=== PATIENT | female | born 1980 | race Caucasian/White ===

== ENCOUNTER 2021-07-24 22:17 | Emergency (ER) | payer OTHER, SELFPAY ==
--- NOTE | 2021-07-24 | ECG_ITS ---
Test Reason : dizziness Blood Pressure : / mmHG Vent. Rate : 093 BPM Atrial Rate : 093 BPM P-R Int : 130 ms QRS Dur : 114 ms QT Int : 396 ms P-R-T Axes : 066 -10 -28 degrees QTc Int : 492 ms Normal sinus rhythm Moderate voltage criteria for LVH, may be normal variant ( R in aVL , [place] product ) Nonspecific ST and T wave abnormality Abnormal ECG When compared with ECG of 09-AUG-2019 10:00, No significant change was found Referred By: Generic ED Physician Electronically Signed By:ERNESTINE WYNN
--- NOTE | ~2021-07-24 | CT_ITS ---
EXAMINATION: CT HEAD WITHOUT CONTRAST CT CERVICAL SPINE WITHOUT CONTRAST CLINICAL INFORMATION: Fall COMPARISON: None. TECHNIQUE: Multidetector CT imaging of the head and cervical spine was performed without the use of intravenous contrast. Multiplanar reformats are reviewed. This CT examination was performed using dose optimization techniques as appropriate, variously including the following: *Automated exposure control *Adjustment of mA and/or kV according to patient size (this includes techniques or standardized protocols for targeted exams where dose is matched to indication/reason for exam; i.e. extremities or head) *Use of iterative reconstruction technique DLP: 1663 mGy-cm. FINDINGS: There is no evidence of acute intracranial hemorrhage or territorial infarction. No abnormal mass effect or midline shift is seen. Joyce to white matter differentiation is well preserved. No extra-axial fluid collections are identified. The ventricles are normal in size. There is no abnormal attenuation within the brain parenchyma. The osseous structures and soft tissues are normal. The mastoid air cells and visualized portions of the paranasal sinuses are well-aerated. Atlantooccipital alignment is maintained. The vertebral bodies and posterior elements align normally. No acute fracture or subluxation. Vertebral body heights are maintained. Endplate osteophytes present from C3-T1. The paraspinal soft tissues are unremarkable. The imaged lung apices are clear CT/CT head/brain wo con IMPRESSION: No acute intracranial pathology. No cervical spine fracture or malalignment.
--- NOTE | ~2021-07-24 | CT_ITS ---
EXAMINATION: CT HEAD WITHOUT CONTRAST CT CERVICAL SPINE WITHOUT CONTRAST CLINICAL INFORMATION: Fall COMPARISON: None. TECHNIQUE: Multidetector CT imaging of the head and cervical spine was performed without the use of intravenous contrast. Multiplanar reformats are reviewed. This CT examination was performed using dose optimization techniques as appropriate, variously including the following: *Automated exposure control *Adjustment of mA and/or kV according to patient size (this includes techniques or standardized protocols for targeted exams where dose is matched to indication/reason for exam; i.e. extremities or head) *Use of iterative reconstruction technique DLP: 1663 mGy-cm. FINDINGS: There is no evidence of acute intracranial hemorrhage or territorial infarction. No abnormal mass effect or midline shift is seen. Joyce to white matter differentiation is well preserved. No extra-axial fluid collections are identified. The ventricles are normal in size. There is no abnormal attenuation within the brain parenchyma. The osseous structures and soft tissues are normal. The mastoid air cells and visualized portions of the paranasal sinuses are well-aerated. Atlantooccipital alignment is maintained. The vertebral bodies and posterior elements align normally. No acute fracture or subluxation. Vertebral body heights are maintained. Endplate osteophytes present from C3-T1. The paraspinal soft tissues are unremarkable. The imaged lung apices are clear CT/CT cervical spine wo con IMPRESSION: No acute intracranial pathology. No cervical spine fracture or malalignment.
[2021-07-24 22:21] VITALS: PULSE 95; RESP 16; TEMP 36.9; O2SAT 98; BMI 53.2
[2021-07-24 22:51] LABS: MANUAL DIFF FLAG NO
[2021-07-24 22:57] LABS: Basophils Absolute Auto 0.1 X10*3/uL (0.0-0.2); Basophils Percent Auto 0.7 % (0-2); Eosinophils Absolute Auto 0.3 X10*3/uL (0.0-0.4); Eosinophils Percent Auto 2.6 % (0-4); Hematocrit 39.7 % (37.0-47.0); Hemoglobin 13.3 g/dl (12.0-16.0); Imm Gran Abs Auto 0.06 X10*3/uL (0.00-0.03); Imm Gran Pct Auto 0.6 % (0.0-0.4); Lymphocytes Absolute Auto 3.3 X10*3/uL (1.2-4.9); Lymphocytes Percent Auto 32.4 % (20-40); Mean Corpuscular HGB Conc 33.5 g/dl (31.0-35.0); Mean Corpuscular Hemoglobin 28.4 pg (27.0-33.0); Mean Corpuscular Volume 84.8 fL (80.0-98.0); Mean Platelet Volume 10.7 fL (9.4-12.3); Monocytes Absolute Auto 0.6 X10*3/uL (0.1-1.2); Neutrophils Absolute Auto 5.8 x10*3/uL (2.0-8.3); Neutrophils Percent Auto 57.7 % (45-73); Platelet Count 297 X10*3/uL (160-400); Red Blood Count 4.68 X10*6/uL (4.20-5.50); Red Cell Distribution Width 12.9 % (11.0-16.0); White Blood Count 10.1 X10*3/uL (4.8-10.8)
[2021-07-24 23:11] LABS: Alanine Aminotransferase 19 U/L (0-31); Albumin Level 4.6 g/dL (3.5-5.0); Alkaline Phosphatase 53 U/L (39-117); Anion Gap 15 (12-20); Aspartate Amino Transferase 23 U/L (5-31); Bilirubin Total 0.6 mg/dL (0.0-1.0); Blood Urea Nitrogen 13 mg/dL (9-16); Calcium 10.1 mg/dL (8.4-10.2); Carbon Dioxide 22 mmol/L (22-29); Chloride 105 mmol/L (96-108); Estimated Glomerular Filt Rate > 60; Glucose Random 107 mg/dL (60-115); Potassium 4.4 mmol/L (3.3-5.1); Sodium 138 mmol/L (135-145)
[2021-07-24 23:13] LABS: Troponin-I High Sensitivity < 3.5 ng/L (<3.5-17.0)
[2021-07-24 23:19] VITALS: BP 162/98; PULSE 88; RESP 16; TEMP 37; O2SAT 97
[2021-07-24 23:36] LABS: HCG Quantitative < 2 mIU/mL
--- NOTE | 2021-07-24 23:52 | ED.GENADULT ---
HPI - General Adult General Chief complaint: Fall Stated complaint: Head Inj Time Seen by Provider: 07/24/21 22:29 Source: patient Mode of arrival: ambulatory Limitations: no limitations History of Present Illness HPI narrative: 40 yold female with pmh of vertigo, HTN, fibromyaglia, PCOS presents to the ED for headache after losing her balance ( dizziness/sensation of room spinning) and falling and hitting her head. Patient states pmh of vertigo causing her to fall and hit her head many times before in the past.. Patient states she lost balance. patient denies having any chest pain, shortness of breath, fever, chills, slurred speech, paralysis of extremities, weakness, headache, loss of visions, or abdominal pain before falling. Patient denies loss of consciousess or syncope. Patient denies any recent long travel, recent surgery, recent trauma, control use, pleurisy, or history or PE/DVT. Related Data Previous Rx's Medication Instructions Recorded meclizine 25 mg tablet 25 mg PO TID 7 Days #21 tab 07/25/21 Allergies Allergy/AdvReac Type Severity Reaction Status Date / Time moxifloxacin [Avelox] Allergy Unknown Verified 12/10/12 00:00 No Known Allergies Allergy Unverified 11/04/19 17:57 seasonal Allergy Unknown Uncoded 12/10/12 00:00 Review of Systems Review of Systems: fall Yes all other systems are reviewed and are negative [facility] Social History Social History Advance Directives: No Physical Exam ED Vital Signs: Vital Signs - 24 hr 07/24/21 22:21 07/24/21 23:19 07/25/21 00:00 Temperature 98.4 F 98.6 F 98.2 F Pulse Rate 95 88 75 Respiratory Rate 16 16 15 Blood Pressure 162/98 H 155/100 H Pulse Oximetry 98 97 97 07/25/21 02:19 07/25/21 02:20 Temperature Pulse Rate 76 107 H Respiratory Rate Blood Pressure 132/87 129/65 Pulse Oximetry BMI result Body Mass Index 53.2 Const General: cooperative, healthy appearing, comfortable, no acute distress, well developed, alert and awake Orientation/consciousness: oriented to time and patient oriented x3 HENMT Head: Yes normal to inspection, Yes No palpable skull fracture present, Yes normocephalic, Yes atraumatic and No abrasion Head images: 1. tenderness on palpation. negative for crepitus, ecchymosis, deformities Eyes General: appearance normal, both eyes and all related structures Neck Neck: Yes normal visual inspection, Yes full ROM, Yes no lymphadenopathy, Yes no meningeal signs, Yes trachea midline, Yes supple, No anterior neck swelling and No tender Chest Chest palpation & inspection: normal inspection of the chest and normal palpation of entire chest wall Resp Effort & Inspection: normal respiratory effort and able to speak in complete sentences Auscultation: clear to auscultation bilaterally Cardio Jugular venous distension: no JVD Heart sounds: S1 normal heart sound present and S2 normal heart sound present GI Inspection: Yes normal to inspection and No abdominal wall ecchymosis Palpation (GI): Soft to palpation, not firm, nontender, no guarding and not rigid General: No CVA tenderness and Yes no CVA tenderness Back/Spine/Pelvis Back: no CVA tenderness, No CVA tenderness and No back tenderness Skin General skin exam: no rashes or lesions noted and elasticity normal Neuro General: oriented to time, patient oriented x3, gait normal, no meningeal signs and CN's II-XI intact bilaterally Cranial nerves: Yes CN's II-XII intact bilaterally Extrem General: Yes normal to inspection and Yes full ROM Psych Appearance: grossly normal, well kempt and not disheveled Course Course Course Narrative: labs, EKG, head CT, and tylenol ordered Reevaluation(s) Reevaluation #1: EKG negative stemi. First troponin negative. Head CT and Cervical Spine is negative. Patient has normal gait. no neuro deficit. Time: 01:40 Medical Decision Making [facility] Narrative Medical decision making narrative: Head injury, Dizziness, Vertigo Lab Data Result diagrams: 07/24/21 22:46 07/24/21 22:46 Labs: Lab Results 07/24/21 07/24/21 07/24/21 Range/Units 22:46 22:46 22:46 WBC 10.1 (4.8-10.8) X10*3/uL RBC 4.68 (4.20-5.50) X10*6/uL Hgb 13.3 (12.0-16.0) g/dl Hct 39.7 (37.0-47.0) % MCV 84.8 (80.0-98.0) fL MCH 28.4 (27.0-33.0) pg MCHC 33.5 (31.0-35.0) g/dl RDW 12.9 (11.0-16.0) % Plt Count 297 (160-400) X10*3/uL MPV 10.7 (9.4-12.3) fL Immature Gran % (Auto) 0.6 H (0.0-0.4) % Neut % (Auto) 57.7 (45-73) % Lymph % (Auto) 32.4 (20-40) % [place] % (Auto) 6.0 (2-11) % Eos % (Auto) 2.6 (0-4) % Baso % (Auto) 0.7 (0-2) % Lymph # (Auto) 3.3 (1.2-4.9) X10*3/uL Oxford # (Auto) 0.6 (0.1-1.2) X10*3/uL Eos # (Auto) 0.3 (0.0-0.4) X10*3/uL Baso # (Auto) 0.1 (0.0-0.2) X10*3/uL Abs Immat Gran (auto) 0.06 H (0.00-0.03) X10*3/uL Absolute Neuts (auto) 5.8 (2.0-8.3) x10*3/uL Absolute Nucleated RBC 0.000 (0.0-0.012) X10*3/uL Nucleated RBC % (auto) 0.0 (0.0-0.2) /100WBC Sodium 138 (135-145) mmol/L Potassium 4.4 (3.3-5.1) mmol/L Chloride 105 (96-108) mmol/L Carbon Dioxide 22 (22-29) mmol/L Anion Gap 15 (12-20) BUN 13 (9-16) mg/dL Creatinine 0.83 (0.5-1.4) mg/dL Estim Creat Clear Calc 133.0 Estimated GFR > 60 Random Glucose 107 (60-115) mg/dL Calcium 10.1 (8.4-10.2) mg/dL Magnesium 1.8 (1.6-2.6) mg/dL Total Bilirubin 0.6 (0.0-1.0) mg/dL AST 23 (5-31) U/L ALT 19 (0-31) U/L Alkaline Phosphatase 53 (39-117) U/L Troponin I High Sens < 3.5 (<3.5-17.0) ng/L Total Protein 8.0 (6.5-8.0) g/dL Albumin 4.6 (3.5-5.0) g/dL Beta HCG, Quant < 2 mIU/mL 07/25/21 Range/Units 01:40 WBC (4.8-10.8) X10*3/uL RBC (4.20-5.50) X10*6/uL Hgb (12.0-16.0) g/dl Hct (37.0-47.0) % MCV (80.0-98.0) fL MCH (27.0-33.0) pg MCHC (31.0-35.0) g/dl RDW (11.0-16.0) % Plt Count (160-400) X10*3/uL MPV (9.4-12.3) fL Immature Gran % (Auto) (0.0-0.4) % Neut % (Auto) (45-73) % Lymph % (Auto) (20-40) % Oxford % (Auto) (2-11) % Eos % (Auto) (0-4) % Baso % (Auto) (0-2) % Lymph # (Auto) (1.2-4.9) X10*3/uL Oxford # (Auto) (0.1-1.2) X10*3/uL Eos # (Auto) (0.0-0.4) X10*3/uL Baso # (Auto) (0.0-0.2) X10*3/uL Abs Immat Gran (auto) (0.00-0.03) X10*3/uL Absolute Neuts (auto) (2.0-8.3) x10*3/uL Absolute Nucleated RBC (0.0-0.012) X10*3/uL Nucleated RBC % (auto) (0.0-0.2) /100WBC Sodium (135-145) mmol/L Potassium (3.3-5.1) mmol/L Chloride (96-108) mmol/L Carbon Dioxide (22-29) mmol/L Anion Gap (12-20) BUN (9-16) mg/dL Creatinine (0.5-1.4) mg/dL Estim Creat Clear Calc Estimated GFR Random Glucose (60-115) mg/dL Calcium (8.4-10.2) mg/dL Magnesium (1.6-2.6) mg/dL Total Bilirubin (0.0-1.0) mg/dL AST (5-31) U/L ALT (0-31) U/L Alkaline Phosphatase (39-117) U/L Troponin I High Sens 3.7 (<3.5-17.0) ng/L Total Protein (6.5-8.0) g/dL Albumin (3.5-5.0) g/dL Beta HCG, Quant mIU/mL ECG Data Interpretation: NOrmal Sinus rhygth, Vent rate 93, AZ interval 130, QRS 114, and QTC is 492 Discharge Plan Discharge Clinical Impression: Dizziness, Head injury, Vertigo Patient Disposition: Home, Self-Care Instructions: Vertigo (DC), Head Injury (ED), Dizziness (ED) Additional Instructions: Please follow up with PCP. Return to the ED for slurred speech, chest pain, shortness of breath, nausea, vomitting, worsening headache, paralysis of extremities, loss of vision, lethargy, syncope, or any other concerning symptoms. Prescriptions: New meclizine 25 mg tablet 25 mg PO TID 7 Days Qty: 21 0RF Referrals: Marco Elam MD [Primary Care Provider] - (head injury. Dizziness. Vertigo) Print Language: Indonesian
[2021-07-25] VITALS: BP 155/100; PULSE 75; RESP 15; TEMP 36.8; O2SAT 97
--- NOTE | 2021-07-25 00:11 | PC.NURSE ---
Patient reports headache 6/10 at present-provider notified.
[2021-07-25] MEDS: Meclizine HCl 25 MG TABLET 50 MG PO (00:20)
[2021-07-25] MEDS: Acetaminophen 325 MG TABLET 650 MG PO (00:21)
[2021-07-25 02:09] LABS: Magnesium 1.8 mg/dL (1.6-2.6)
[2021-07-25 02:16] LABS: Troponin-I High Sensitivity 3.7 ng/L (<3.5-17.0)
[2021-07-25 02:19] VITALS: BP 132/87; PULSE 76
[2021-07-25 02:20] VITALS: BP 129/65; BP 149/96; PULSE 107; PULSE 76
== END 2021-07-25 02:42 | disposition home or self-care (01) ==
PROVIDERS: Physician Assistant; Emergency Provider Internal Medicine; PCP Internal Medicine
DX: R42 Dizziness and giddiness (principal); S09.90XA Unspecified injury of head, initial encounter; W17.89XA Other fall from one level to another, initial encounter; Z91.81 History of falling; Y93.9 Activity, unspecified; Y92.019 Unspecified place in single-family (private) house as the place of occurrence of the external cause; Y99.9 Unspecified external cause status
CPT/HCPCS: 36415; 70450; 72125; 80053; 83735; 84484; 84702; 85025; 93005; 99284

== ENCOUNTER 2021-10-14 15:16 | Emergency (ER) | payer OTHER, SELFPAY ==
--- NOTE | ~2021-10-14 | XR_ITS ---
EXAMINATION: XR ELBOW, RIGHT CLINICAL INFORMATION: Pain COMPARISON: None TECHNIQUE: AP, lateral, and oblique views of the right elbow. FINDINGS: The bones and soft tissues are normal. No fracture or joint effusion. Alignment is anatomic. Joint spaces are maintained. XR/XR elbow RT min 3V IMPRESSION: No osseous changes to explain patient's pain symptoms.
--- NOTE | ~2021-10-14 | XR_ITS ---
EXAMINATION: XR TIBIA AND FIBULA, LEFT CLINICAL INFORMATION: Pain fall COMPARISON: None TECHNIQUE: AP and lateral views of the left tibia and fibula were obtained. FINDINGS: The bones and soft tissues are normal. No fracture. No osseous lesions. XR/XR tibia fibula LT 2V IMPRESSION: No fracture.
--- NOTE | ~2021-10-14 | XR_ITS ---
EXAMINATION: XR FOOT, LEFT CLINICAL INFORMATION: Pain COMPARISON: None TECHNIQUE: AP, lateral, and oblique views of the left foot. FINDINGS: The bones and soft tissues are normal. No fracture. Alignment is anatomic. Joint spaces are maintained. There are small calcaneal spurs. No significant osseous changes to suggest gouty arthritis. First metatarsophalangeal joints is intact. Loss of midfoot arch suggesting pes planus. XR/XR foot LT min 3V IMPRESSION: No significant osseous changes to explain patient's pain symptoms. Small inferior and posterior calcaneal spurs. No bone erosions. Loss of midfoot arch suggesting pes planus.
[2021-10-14 15:25] VITALS: BP 157/97; PULSE 90; RESP 18; TEMP 36.8; O2SAT 97; BMI 55.7
--- NOTE | 2021-10-14 16:25 | ED.FALL ---
HPI - Fall General Chief Complaint: Fall Stated Complaint: Fall 10/13 Time Seen by Provider: 10/14/21 15:54 Source: patient Mode of arrival: ambulatory Limitations: no limitations History of Present Illness HPI Narrative: 40-year-old female presenting to the ED with complaints of a gout flare up to her left great toe that started over the past few days. Reports that she usually takes indomethacin. Reports that the pain has gotten so bad that yesterday she fell on her bilateral hand/right elbow and bilateral legs injuring her left lower extremity. She denies head injury loss of consciousness or prolonged down time. She denies any symptoms prior to the fall only her gout flare pain. She denies being on any blood thinners. She denies any obvious deformities, paresthesias, neck pain/stiffness, back pain/injury, chest injury, abdominal injury, paresthesias, any other symptoms complaints or concerns or injuries at this time. complaint: fall Onset (ago): day(s) (Fell yesterday although she has been having her gout flare up for the past few days worse today) Fall from: standing Fall witnessed: no Place fall occurred: home Loss of consciousness: none Prolonged down time: no Symptoms prior to fall: none Context: tripped/slipped Location of injury - extremities: left: lower leg and right: elbow and hand Severity: mild Quality: burning and aching Associated symptoms (after fall): denies Related Data Previous Rx's Medication Instructions Recorded meclizine 25 mg tablet 25 mg PO TID 7 days #21 tabs 07/25/21 indomethacin 50 mg capsule 50 mg PO TID Gout flare #30 caps 10/14/21 oxycodone 5 mg tablet 5 mg PO Q6H PRN pain #14 tabs 10/14/21 prednisone 20 mg tablet 40 mg PO DAILY Inflammation 5 days 10/14/21 #10 tabs Allergies Allergy/AdvReac Type Severity Reaction Status Date / Time moxifloxacin [Avelox] Allergy Unknown Unknown Verified 10/14/21 15:25 No Known Allergies Allergy Unverified 11/04/19 17:57 seasonal Allergy Unknown Dry Eye Uncoded 10/14/21 15:25 Review of Systems Review of Systems: Constitutional : No Weight loss, No Fever, No Chills, No Night Sweats, No Fatigue, No Malaise ENT/Mouth : No Hearing loss, No Ear Pain, No Nasal Congestion, No Sinus Pain, No Hoarseness, No sore throat, No Rhinorrhea, No Swallowing Difficulty Eyes: No Eye Pain, No Swelling, No Redness, No Foreign Body, No Discharge, No Vision Changes Cardiovascular : No Chest Pain, No SOB, No Dyspnea on Exertion, No Orthopnea, No Edema, No Palpitations Respiratory : No Cough, No Sputum, No Wheezing, No Smoke Exposure, No Dyspnea Gastrointestinal : No Nausea, No Vomiting, No Diarrhea, No Constipation, No abdominal Pain, No Hematochezia, No Melena Genitourinary : no irregular bleeding, No Dysuria, No Urinary Frequency, No Hematuria, No Urinary Incontinence, No Urgency, No Flank Pain, No Urinary Flow Changes, No Hesitancy Musculoskeletal : + right elbow/hand/wrist p[ain, + left lower extremity pain, +left great toe pain, No Myalgias, No Joint Swelling Skin : No Skin Lesions, No rash Neuro : No Weakness, No Numbness, No Paresthesias, No Loss of Consciousness, No Dizziness, No Headache Psych : No Anxiety/Panic, No Depression, No SI/HI/AH/VH, No Social Issues, Heme/Lymph: No Bruising, No Bleeding,No Lymphadenopathy Endocrine : No Polyuria, No Polydipsia, No Temperature Intolerance Yes all other systems are reviewed and are negative [facility] Past Medical History Attestation statement: The following information was validated with the patient. Source: old records reviewed and nursing notes reviewed Social History Social History Advance Directives: No Advance Directives Information Provided: No Physical Exam Vital Signs: Vital Signs: Last Vital Signs Temp 98.3 F 10/14/21 15:25 Pulse 90 10/14/21 15:25 Resp 18 10/14/21 15:25 BP 157/97 H 10/14/21 15:25 Pulse Ox 97 10/14/21 15:25 O2 Del Method 10/14/21 15:25 BMI result Body Mass Index 55.7 vital signs have been reviewed as normal and appeared to be correct. Blood pressure 157/97 Heart rate normal. Respiration rate normal. Temperature normal. Oxygen saturation normal. Appearance: Alert. Oriented X3. No acute distress. Head: Normal external exam. Normocephalic. Atraumatic. No Aceves signs noted. No raccoon eyes noted Eyes: PERRLA. EOMI. Conjunctiva and sclera normal. Eyelids normal. ENT: EAC normal. TM's Normal. No septal hematoma noted. No hemotympanum noted. Pharynx normal. Uvula midline. Moist mucous membranes. No lesions/ulcerations or masses noted on the tongue. Normal voice. No trismus noted. No drooling noted. No muffled voice noted. Neck: Normal inspection. Neck supple. FROM. No adenopathy. Thyroid Normal. No tracheal deviation noted. No crepitus is noted. No meningeal signs. No neck mass noted. No signs of trauma noted. CVS: Normal heart rate and rhythm. Heart sound normal. Pulses normal throughout. No murmurs/rales/gallops. Respiratory: No respiratory distress. Painless inspiration. Breath sounds normal. No wheezes/rales/rhonchi noted. Chest nontender. No crepitus is noted. No accessory muscle usage noted or decreased air movement noted. No signs of trauma. Abdomen: Soft and nontender. Nondistended. No guarding. No rigidity. Bowel sounds normal in all 4 quadrants. No distention noted. No organomegaly noted. No visible injury noted. No rebound tenderness. Negative Rovsing sign. Negative obturator's sign. Negative psoas sign. Negative Matos sign. Back: No CVA tenderness. Full range of motion noted. Nontender. No signs of trauma. Patient neuro intact bilaterally and distally on all 4 extremities. Patient's reflexes intact bilaterally and distally on all 4 extremities. No rashes/lesion/induration/fluctuance or signs of infection noted. Skin: Skin warm and dry. Normal skin color. Normal skin turgor. No rashes/lesions/lacerations noted. Extremities: Patient with mild soft tissue swelling to right elbow no obvious deformities and patient has full range of motion no obvious ligamentous or tendon injury noted. Patient with tenderness palpation to the right hand and wrist no point tenderness and she has full range of motion of the right hand/wrist no obvious ligamentous or tendon injury noted. Patient has full range normal bilateral knees no signs of trauma. To the mid tibia/fibula aspect anterior patient has soft tissue swelling with ecchymosis noted. To the left great toe patient has erythema and mild tenderness palpation consistent with possible gout flare-up. Otherwise no lower extremity edema or calf tenderness and patient has full range of motion of all other extremities and nontender. Neuro: Oriented X 3. No motor deficit. No sensory deficit. Reflexes normal. Normal steady gait. No focal neuro deficits noted. CN's II-XII intact bilaterally? Vascular: + radial pulses/+ 2 distal pedal pulses/+2 dorsalis pedis b/l. Normal cap refill. No cyanosis noted to upper extremity nails and lower extremity toes nails. Course Course Course Narrative: X-rays negative for any acute processes. Will DC home with symptomatic treatment for gout flare-up and instructions return if any new or worsening symptoms follow up with primary care provider. Patient understands agrees with this plan. MDM - Fall Medical Records Attestation: I reviewed the patient's medical records. Imaging Data Left tibia/fibular x-ray elbow x-ray: Attestation: I personally reviewed and interpreted this imaging study as follows: Radiologist's impression: FINDINGS: The bones and soft tissues are normal. No fracture or joint effusion. Alignment is anatomic. Joint spaces are maintained.? XR/XR elbow RT min 3V IMPRESSION: No osseous changes to explain patient's pain symptoms. FINDINGS: The bones and soft tissues are normal. No fracture. Alignment is anatomic. Joint spaces are maintained.? There are small calcaneal spurs. No significant osseous changes to suggest gouty arthritis. First metatarsophalangeal joints is intact. Loss of midfoot arch suggesting pes planus. XR/XR foot LT min 3V IMPRESSION: No significant osseous changes to explain patient's pain symptoms. ? Small inferior and posterior calcaneal spurs. ? No bone erosions. ? Loss of midfoot arch suggesting pes planus. FINDINGS: The bones and soft tissues are normal. No fracture. No osseous lesions. ? XR/XR tibia fibula LT 2V IMPRESSION: No fracture. Discharge Plan Discharge Clinical Impression: Fall, Sprain of right elbow, Gout flare, Muscle strain of left lower extremity Patient Disposition: Home, Self-Care Instructions: Low Purine Diet (ED), Gout (ED), Elbow Sprain (ED) Prescriptions: New indomethacin 50 mg capsule 50 mg PO TID Qty: 30 0RF Rx Instructions: administer with food or milk prednisone 20 mg tablet 40 mg PO DAILY 5 Days Qty: 10 0RF oxycodone 5 mg tablet 5 mg PO Q6H PRN (Reason: pain) Qty: 14 0RF Rx Instructions: Partial Fill upon patient request. No Action meclizine 25 mg tablet 25 mg PO TID 7 Days Qty: 21 0RF Referrals: Bhavin Babb MD [Primary Care Provider] - 2 days Print Language: Georgian
[2021-10-14] MEDS: oxyCODONE HCl Immed Release 5 MG TABLET PO (17:39)
[2021-10-14] MEDS: Indomethacin 25 MG CAPSULE 50 MG PO (17:40)
[2021-10-14] MEDS: predniSONE 20 MG TABLET 60 MG PO (17:40)
== END 2021-10-14 18:01 | disposition home or self-care (01) ==
PROVIDERS: Emergency Provider Emergency Medicine; PCP Internal Medicine
DX: S53.401A Unspecified sprain of right elbow, initial encounter (principal); S83.92XA Sprain of unspecified site of left knee, initial encounter; M10.9 Gout, unspecified; M25.521 Pain in right elbow; M79.605 Pain in left leg; W01.0XXA Fall on same level from slipping, tripping and stumbling without subsequent striking against object, initial encounter; Y93.9 Activity, unspecified; Y92.9 Unspecified place or not applicable; Y99.9 Unspecified external cause status; Z79.899 Other long term (current) drug therapy
CPT/HCPCS: 73080; 73590; 73630; 99283

== ENCOUNTER 2022-01-01 18:57 | Emergency (ER) | payer OTHER, SELFPAY ==
[2022-01-01 19:57] VITALS: BP 156/104; PULSE 99; RESP 18; TEMP 36.7; BMI 54.9
[2022-01-01 23:20] VITALS: BP 152/80; PULSE 105; RESP 19; TEMP 37.2; O2SAT 99
--- NOTE | 2022-01-01 23:54 | ED.GENADULT ---
HPI - General Adult General Chief complaint: General Medical Stated complaint: abscess, gout Time Seen by Provider: 01/01/22 23:40 Source: patient Mode of arrival: ambulatory Limitations: no limitations History of Present Illness HPI narrative: Patient comes to the emergency room complaining of a gout attack in her left big toe which she has had before. Also, patient complaining of movement patient, all her teeth hurt , specifically in the maxillary side on the right. Patient denies fever chills. Patient states that she has had issues with her asthma in the last few days. At this time, patient has no shortness of breath. Related Data Previous Rx's Medication Instructions Recorded meclizine 25 mg tablet 25 mg PO TID 7 days #21 tabs 07/25/21 cyclobenzaprine 10 mg tablet 10 mg PO Q8H #14 tabs 10/14/21 indomethacin 50 mg capsule 50 mg PO TID Gout flare #30 caps 10/14/21 oxycodone 5 mg tablet 5 mg PO Q6H PRN pain #14 tabs 10/14/21 prednisone 20 mg tablet 40 mg PO DAILY Inflammation 5 days 10/14/21 #10 tabs penicillin V potassium 500 mg 500 mg PO TID 7 days #21 tabs 01/01/22 tablet indomethacin 50 mg capsule 50 mg PO BID PRN pain #20 caps 01/02/22 prednisone 50 mg tablet 50 mg PO DAILY #4 tabs 01/02/22 Allergies Allergy/AdvReac Type Severity Reaction Status Date / Time moxifloxacin [Avelox] Allergy Unknown Unknown Verified 01/01/22 20:01 No Known Allergies Allergy Unverified 11/04/19 17:57 seasonal Allergy Unknown Dry Eye Uncoded 10/14/21 15:25 Review of Systems Review of Systems: Constitutional : No Weight loss, No Fever, No Chills, No Night Sweats, No Fatigue, No Malaise ENT/Mouth : No Hearing loss, No Ear Pain, No Nasal Congestion, No Sinus Pain, No Hoarseness, No sore throat, No Rhinorrhea, No Swallowing Difficulty, complaining of poor dentition and pain in the gums on the upper side on the right Eyes: No Eye Pain, No Swelling, No Redness, No Foreign Body, No Discharge, No Vision Changes Cardiovascular : No Chest Pain, No SOB, No Dyspnea on Exertion, No Orthopnea, No Edema, No Palpitations Respiratory : No Cough, No Sputum, complaining of intermittent wheezing, asthma not well controlled. Gastrointestinal : No Nausea, No Vomiting, No Diarrhea, No Constipation, No abdominal Pain, No Hematochezia, No Melena Genitourinary : no irregular bleeding, No Dysuria, No Urinary Frequency, No Hematuria, No Urinary Incontinence, No Urgency, No Flank Pain, No Urinary Flow Changes, No Hesitancy Musculoskeletal : No joint pain, No Myalgias, No Joint Swelling Skin : Complaining of a gout attack on the left great toe Neuro : No Weakness, No Numbness, No Paresthesias, No Loss of Consciousness, No Dizziness, No Headache Psych : No Anxiety/Panic, No Depression, No SI/HI/AH/VH, No Social Issues, Heme/Lymph: No Bruising, No Bleeding,No Lymphadenopathy Endocrine : No Polyuria, No Polydipsia, No Temperature Intolerance [facility] Past Medical History Medical History (Updated 01/01/22 @ 23:59 by Andree Marie MD) Asthma exacerbation Gout Poor dentition Social History Social History Advance Directives: No Advance Directives Information Provided: Yes Physical Exam ED Vital Signs: Vital Signs - 24 hr 01/01/22 19:57 01/01/22 23:20 Temperature 98.1 F 98.9 F Pulse Rate 99 105 H Respiratory Rate 18 19 Blood Pressure 156/104 H 152/80 H Pulse Oximetry 99 Oxygen Delivery Method Room Air Room Air BMI result Body Mass Index 54.9 Const Other: Appearance: Alert. Oriented X3. No acute distress. Eyes: Pupils equal, round and reactive to light. ENT: Pharynx normal. Patient does have poor dentition. Decayed teeth throughout the mouth. There are no visible abscesses that could be drained. Neck: Normal inspection. Neck supple. No lymph nodes noted. No crepitus CVS: Normal heart rate and rhythm. Pulses normal. Normal S1 and S2 Respiratory: No respiratory distress. Breath sounds normal. No Wheezing. No rales Abdomen: Soft and nontender. No rigidity. No distention. Skin: Skin warm and dry. Normal skin color. Normal skin turgor. The great toe is erythematous and very tender to touch, consistent with gout Extremities: No lower extremity edema. No Lacerations. No Rash Neuro: Oriented X 3. No motor deficit. No sensory deficit. Moving all extremities. No slurred speech. CN 2 through 12 grossly intact Psych: calm, cooperative, normal affect Course Course Course Narrative: Patient will be started on antibiotics for dental pain. Patient instructed to follow up with the primary care physician. Patient given a dose of IM Toradol for both dental pain and gout. For the gout, patient was also given a dose of colchicine and prednisone. At this time, patient is not wheezing, however she will be given prednisone for both gout and asthma Discharge Plan Discharge Clinical Impression: Gout attack, Pain, dental, Asthma Patient Disposition: Home, Self-Care Instructions: Asthma (ED), Gout (ED), Toothache (ED) Additional Instructions: Please follow-up with your primary care physician and dentist tomorrow. If you have any worsening or new symptoms, please return to the emergency room or call 911 Prescriptions: New penicillin V potassium 500 mg tablet 500 mg PO TID 7 Days Qty: 21 0RF prednisone 50 mg tablet 50 mg PO DAILY Qty: 4 0RF indomethacin 50 mg capsule 50 mg PO BID PRN (Reason: pain) Qty: 20 0RF Rx Instructions: administer with food or milk No Action meclizine 25 mg tablet 25 mg PO TID 7 Days Qty: 21 0RF indomethacin 50 mg capsule 50 mg PO TID Qty: 30 0RF Rx Instructions: administer with food or milk prednisone 20 mg tablet 40 mg PO DAILY 5 Days Qty: 10 0RF oxycodone 5 mg tablet 5 mg PO Q6H PRN (Reason: pain) Qty: 14 0RF Rx Instructions: Partial Fill upon patient request. cyclobenzaprine 10 mg tablet 10 mg PO Q8H Qty: 14 0RF
[2022-01-02] MEDS: Penicillin V Potassium 250 MG TABLET 500 MG PO (00:25)
[2022-01-02] MEDS: Ketorolac Tromethamine 60 MG/2 ML VIAL IM (00:46)
[2022-01-02] MEDS: Colchicine 0.6 MG TABLET 1.2 MG PO (00:47)
[2022-01-02] MEDS: predniSONE 10 MG TABLET 50 MG PO (00:47)
--- NOTE | 2022-01-02 00:51 | PC.NURSE ---
order for colchicine 1.2mg contacted nursing transportation maintenance supervisor to obtain med as it was not available in emc and main ed causing delay in medication and discharge
--- NOTE | 2022-01-02 00:52 | PC.NURSE ---
pt medicated according to MAR
== END 2022-01-02 01:01 | disposition home or self-care (01) ==
PROVIDERS: Emergency Provider Emergency Medicine; PCP Internal Medicine
DX: M10.9 Gout, unspecified (principal); K08.89 Other specified disorders of teeth and supporting structures; J45.909 Unspecified asthma, uncomplicated; Z79.899 Other long term (current) drug therapy
CPT/HCPCS: 96372; 99283; 99284; J1885

== ENCOUNTER 2022-01-06 15:23 | Emergency (ER) | payer OTHER, SELFPAY ==
--- NOTE | 2022-01-06 15:27 | ED.DENTAL ---
HPI - Dental/Oral General Chief complaint: Dental/Oral Stated complaint: tooth abscess Time Seen by Provider: 01/06/22 15:27 Source: patient Mode of arrival: ambulatory Limitations: no limitations History of Present Illness HPI Narrative: 41 yo female with history of poor dentition presents to the ER for evaluation of tooth pain and concern of abscess. He states she was recently diagnosed with a dental abscess of 1 of her front teeth and was started on penicillin and pain control. She states she went to her dentist at the [facility] and they were told they could not drain it. She is due to get her teeth extracted next week. She is here with increased pain and swelling. She is worried there can not extract her teeth because of the pain and swelling. She also reports increased pain of her nose with blisters inside of her right nare. No fever or chills. She has a headache and facial pain from her swollen and infected tooth. MD Complaint: tooth pain Location: Tooth # (8) Onset (ago): day(s) Duration: constant Severity: severe Severity scale (1-10): 10 Relieving factors: nothing Exacerbating factors: chewing, cold, heat and drinking fluids Context: history of dental caries and poor dental care Associated symptoms: gum swelling Treatment prior to arrival: none Related Data Previous Rx's Medication Instructions Recorded meclizine 25 mg tablet 25 mg PO TID 7 days #21 tabs 07/25/21 cyclobenzaprine 10 mg tablet 10 mg PO Q8H #14 tabs 10/14/21 indomethacin 50 mg capsule 50 mg PO TID Gout flare #30 caps 10/14/21 oxycodone 5 mg tablet 5 mg PO Q6H PRN pain #14 tabs 10/14/21 prednisone 20 mg tablet 40 mg PO DAILY Inflammation 5 days 10/14/21 #10 tabs penicillin V potassium 500 mg 500 mg PO TID 7 days #21 tabs 01/01/22 tablet indomethacin 50 mg capsule 50 mg PO BID PRN pain #20 caps 01/02/22 prednisone 50 mg tablet 50 mg PO DAILY #4 tabs 01/02/22 chlorhexidine gluconate 0.12 % 15 ml buccal BID #118 mL 01/06/22 mouthwash (Peridex) clindamycin HCl 300 mg capsule 300 mg PO Q6H 7 days #28 caps 01/06/22 oxycodone 10 mg tablet 10 mg PO Q8H PRN severe pain 01/06/22 (scale score 7-10) #8 tabs valacyclovir 1 gram tablet 1,000 mg PO Q8H 7 days #21 tabs 01/06/22 Allergies Allergy/AdvReac Type Severity Reaction Status Date / Time moxifloxacin [Avelox] Allergy Unknown Unknown Verified 01/01/22 20:01 No Known Allergies Allergy Unverified 11/04/19 17:57 seasonal Allergy Unknown Dry Eye Uncoded 10/14/21 15:25 Review of Systems Review of Systems: Constitutional: No Fever, No Chills ENT/Mouth: No sore throat, +Rhinorrhea, No Swallowing Difficulty, +Dental pain Eyes: +Eye Pain, No Swelling, No Redness Cardiovascular: No Chest Pain, No SOB Respiratory: No Cough, No Sputum Gastrointestinal: No Nausea, No Vomiting, No Diarrhea, No abdominal Pain Musculoskeletal: No joint pain, No Myalgias Skin: No Skin Lesions, + rash Neuro: No Weakness, No Numbness, No Dizziness, + Headache Psych: + Anxiety/Panic, No Depression Heme/Lymph: No Bruising, No Lymphadenopathy PMFSH Past Medical History Medical History (Updated 01/06/22 @ 15:43 by NICK Jarvis) Asthma exacerbation Gout Poor dentition Social History Social History Advance Directives: No Advance Directives Information Provided: Yes Physical Exam Vital Signs: Vital Signs: Last Vital Signs Temp 98.7 F 01/06/22 15:29 Pulse 91 01/06/22 15:29 Resp 18 01/06/22 15:29 BP 178/112 H 01/06/22 15:29 Pulse Ox 97 01/06/22 15:29 O2 Del Method 01/06/22 15:29 BMI result Body Mass Index 61.3 Appearance: Alert. Oriented X3. No acute distress. HEENT: The right nare internally and externally has several sores in a cluster on an erythematous base, exquisitely tender. No lesions on the tip of the nose. Normal inspection of the bilateral eyes. Normal inspection of bilateral ears, TMs are clear bilaterally. Oral exam with poor dentition, black stubs for upper teeth. gingiva associated with tooth #8 with significant gingival swelling, tenderness and fluctuance with visible abscess. Uvula midline. No tonsillar swelling or exudate. CVS: Normal heart rate and rhythm. Pulses normal. Respiratory: No respiratory distress. Lungs are clear. Airway is patent. Skin: Skin warm and dry. Normal skin color. Normal skin turgor. No rashes. Extremities: Normal inspection, normal range of motion. Neuro: Oriented X 3. No motor deficit. No sensory deficit. Steady gait Course Course Course Narrative: 41-year-old female presents to the ER for evaluation of dental abscesses of tooth 8. Already on penicillin. Worsening symptoms on penicillin. Concern she needs drained today. She is agreeable. Will also plan to add additional antibiotic coverage with clindamycin. Pain medications have been controlled and topical lidocaine has been applied. Will plan to incise and drain the abscess today. Reevaluation(s) Reevaluation #1: Abscess was incised with an 11 blade with expression of green purulent discharge. Patient feeling some relief in the pressure and pain after drainage. Will add clindamycin to her previously prescribed pen V. The blisters and sores on her right nose and nostril are consistent with HSV infection. Will prescribe and treat with valacyclovir. No eye or ear involvement. Comfortable discharge home. She will follow-up with her dentist early this week. Medications Administered Discontinued Medications Generic Name Dose Route Start Last Admin Trade Name Wiliamq PRN Reason Stop Dose Admin Clindamycin HCl 300 mg 01/06/22 15:42 01/06/22 16:00 Clindamycin Hcl 300 Mg Capsule PO 01/06/22 15:43 300 mg ONCE ONE Administration Ketorolac Tromethamine 30 mg 01/06/22 15:36 01/06/22 16:00 Ketorolac Tromethamine 30 Mg/Ml Vial IM 01/06/22 15:37 30 mg ONCE ONE Administration Lidocaine HCl 15 ml 01/06/22 16:19 01/06/22 16:24 Lidocaine Hcl Viscous 2 % 15 Ml Solution MUCOUS MEM 01/06/22 16:20 15 ml ONCE ONE Administration Oxycodone HCl 10 mg 01/06/22 15:36 01/06/22 16:00 Oxycodone Hcl Immed Release 5 Mg Tablet PO 01/06/22 15:37 10 mg ONCE ONE Administration Procedures Abscess I/D Site: oral Side (if applicable): right Local Anesthetic: other anesthetic (Law lidocaine, topical lidocaine) Technique: incised with blade Sent for culture/gram staining?: No Irrigation: No Packing used?: none Complications: pain Discharge Plan Discharge Clinical Impression: Dental abscess Patient Disposition: Home, Self-Care Instructions: Dental Abscess (ED) Additional Instructions: Take the prescribed antibiotics in addition to your previously prescribed antibiotics. Complete the entire course. Use the antiseptic mouthwash 2 times a day as directed. Follow-up with your dentist tomorrow. Take the prescribed pain medication as needed for severe pain. Recommend around the clock anti-inflammatory medications like Aleve, Motrin or indomethacin as well. Follow-up with your dentist early this week. Take the prescribed antiviral medication for the sores in your nose. If you develop new or worsening symptoms call 911 or come back to the ER for further evaluation. Prescriptions: New clindamycin HCl 300 mg capsule 300 mg PO Q6H 7 Days Qty: 28 0RF chlorhexidine gluconate [Peridex] 0.12 % mouthwash 15 ml buccal BID Qty: 118 0RF valacyclovir 1 gram tablet 1,000 mg PO Q8H 7 Days Qty: 21 0RF oxycodone 10 mg tablet 10 mg PO Q8H PRN (Reason: severe pain (scale score 7-10)) Qty: 8 0RF Rx Instructions: Partial Fill upon patient request. No Action meclizine 25 mg tablet 25 mg PO TID 7 Days Qty: 21 0RF indomethacin 50 mg capsule 50 mg PO TID Qty: 30 0RF Rx Instructions: administer with food or milk prednisone 20 mg tablet 40 mg PO DAILY 5 Days Qty: 10 0RF oxycodone 5 mg tablet 5 mg PO Q6H PRN (Reason: pain) Qty: 14 0RF Rx Instructions: Partial Fill upon patient request. cyclobenzaprine 10 mg tablet 10 mg PO Q8H Qty: 14 0RF penicillin V potassium 500 mg tablet 500 mg PO TID 7 Days Qty: 21 0RF prednisone 50 mg tablet 50 mg PO DAILY Qty: 4 0RF indomethacin 50 mg capsule 50 mg PO BID PRN (Reason: pain) Qty: 20 0RF Rx Instructions: administer with food or milk Interventions: ED Discharge Assessment Last Done: 01/06/22 16:32 Discharge Date/Time: 01/06/22 16:34
[2022-01-06 15:29] VITALS: BP 178/112; PULSE 91; RESP 18; TEMP 37.1; O2SAT 97; BMI 61.3
[2022-01-06] MEDS: Ketorolac Tromethamine 30 MG/ML VIAL IM (16:00)
[2022-01-06] MEDS: oxyCODONE HCl Immed Release 5 MG TABLET 10 MG PO (16:00)
[2022-01-06] MEDS: Clindamycin HCL 300 MG CAPSULE PO (16:00)
[2022-01-06] MEDS: Lidocaine HCl Viscous 2 % 15 ML SOLUTION MUCOUS MEM (16:24)
== END 2022-01-06 16:34 | disposition home or self-care (01) ==
PROVIDERS: Emergency Provider Emergency Medicine Emergency Medical Services
DX: K04.7 Periapical abscess without sinus (principal); Z79.899 Other long term (current) drug therapy
CPT/HCPCS: 41800; 96372; 99283; 99284; J1885

== ENCOUNTER 2022-03-09 15:21 | Emergency (ER) | payer OTHER, SELFPAY ==
[2022-03-09 15:47] VITALS: BP 187/100; PULSE 95; RESP 20; TEMP 37; O2SAT 97; BMI 54.9
--- NOTE | 2022-03-09 16:03 | ED.GENADULT ---
HPI - General Adult General Chief complaint: Extremity Injury, Lower Stated complaint: left foot pain Time Seen by Provider: 03/09/22 16:00 History of Present Illness HPI narrative: Patient complains of left big toe pain same as prior flares of gout, denies any injury no fever, denies any additional rash no chest pain no cough Related Data Previous Rx's Medication Instructions Recorded meclizine 25 mg tablet 25 mg PO TID 7 days #21 tabs 07/25/21 cyclobenzaprine 10 mg tablet 10 mg PO Q8H #14 tabs 10/14/21 indomethacin 50 mg capsule 50 mg PO TID Gout flare #30 caps 10/14/21 oxycodone 5 mg tablet 5 mg PO Q6H PRN pain #14 tabs 10/14/21 prednisone 20 mg tablet 40 mg PO DAILY Inflammation 5 days 10/14/21 #10 tabs penicillin V potassium 500 mg 500 mg PO TID 7 days #21 tabs 01/01/22 tablet indomethacin 50 mg capsule 50 mg PO BID PRN pain #20 caps 01/02/22 prednisone 50 mg tablet 50 mg PO DAILY #4 tabs 01/02/22 chlorhexidine gluconate 0.12 % 15 ml buccal BID #118 mL 01/06/22 mouthwash (Peridex) clindamycin HCl 300 mg capsule 300 mg PO Q6H 7 days #28 caps 01/06/22 oxycodone 10 mg tablet 10 mg PO Q8H PRN severe pain 01/06/22 (scale score 7-10) #8 tabs valacyclovir 1 gram tablet 1,000 mg PO Q8H 7 days #21 tabs 01/06/22 colchicine 0.6 mg tablet 0.6 mg PO BID As needed for gout 03/09/22 #10 tabs ibuprofen 800 mg tablet 800 mg PO TID PRN pain #20 tabs 03/09/22 oxycodone 5 mg tablet 5 mg PO Q6H PRN pain #14 tabs 03/09/22 prednisone 20 mg tablet 60 mg PO DAILY 3 days #9 tabs 03/09/22 Allergies Allergy/AdvReac Type Severity Reaction Status Date / Time moxifloxacin [Avelox] Allergy Unknown Unknown Verified 01/01/22 20:01 No Known Allergies Allergy Unverified 11/04/19 17:57 seasonal Allergy Unknown Dry Eye Uncoded 10/14/21 15:25 PMFSH Past Medical History Source: nursing notes reviewed Medical History (Updated 03/09/22 @ 16:09 by NICK Riley) Asthma exacerbation Gout Poor dentition Social History Social History Advance Directives: No Advance Directives Information Provided: No Physical Exam ED Vital Signs: Vital Signs - 24 hr 03/09/22 15:47 Temperature 98.6 F Pulse Rate 95 Respiratory Rate 20 Blood Pressure 187/100 H Pulse Oximetry 97 Oxygen Delivery Method Room Air BMI result Body Mass Index 54.9 General appearance uncomfortable no acute distress The head is normocephalic atraumatic Neck is supple Respiratory no distress Extremities full range of motion x4 including left big toe Left big toe exam there is a small area of pinkish redness on the dorsum of the big toe around MtP but no other surrounding erythema, skin is intact no other rash Other joints and extremities normal Neuro no focal motor sensory deficits Course Course Course Narrative: Patient with left 1st MTP pain typical of prior episodes of gout with minimal redness over the MTP, no other redness or warmth, she can flex and extend the toe, no evidence of infection and she is treated for gout, she is able to ambulate from the ER with a limp and is discharged home with medication for gout and pain Medications Administered Discontinued Medications Generic Name Dose Route Start Last Admin Trade Name Freq PRN Reason Stop Dose Admin Ketorolac Tromethamine 30 mg 03/09/22 16:04 03/09/22 16:20 Ketorolac Tromethamine 30 Mg/Ml Vial IM 03/09/22 16:05 30 mg ONCE ONE Administration Oxycodone HCl 10 mg 03/09/22 16:04 03/09/22 16:21 Oxycodone Hcl Immed Release 5 Mg Tablet PO 03/09/22 16:05 10 mg ONCE ONE Administration Prednisone 60 mg 03/09/22 16:04 03/09/22 16:20 Prednisone 20 Mg Tablet PO 03/09/22 16:05 60 mg ONCE ONE Administration Discharge Plan Discharge Clinical Impression: Gout Patient Disposition: Home, Self-Care Additional Instructions: The pain in her left big toe is likely gout, it does not look infected now We are trying prednisone and ibuprofen as needed as well as oxycodone if pain is severe You could use colchicine as well-1st dose of colchicine is 2 tablets of 0.6 mg equaling 1.2 mg, after that it is 1 tablet of 0.6 mg twice a day as needed Follow with primary doctor Return any time any worse condition or any concerns Prescriptions: New prednisone 20 mg tablet 60 mg PO DAILY 3 Days Qty: 9 0RF colchicine 0.6 mg tablet 0.6 mg PO BID Qty: 10 0RF ibuprofen 800 mg tablet 800 mg PO TID PRN (Reason: pain) Qty: 20 0RF oxycodone 5 mg tablet 5 mg PO Q6H PRN (Reason: pain) Qty: 14 0RF Rx Instructions: Partial Fill upon patient request. No Action meclizine 25 mg tablet 25 mg PO TID 7 Days Qty: 21 0RF indomethacin 50 mg capsule 50 mg PO TID Qty: 30 0RF Rx Instructions: administer with food or milk prednisone 20 mg tablet 40 mg PO DAILY 5 Days Qty: 10 0RF oxycodone 5 mg tablet 5 mg PO Q6H PRN (Reason: pain) Qty: 14 0RF Rx Instructions: Partial Fill upon patient request. cyclobenzaprine 10 mg tablet 10 mg PO Q8H Qty: 14 0RF penicillin V potassium 500 mg tablet 500 mg PO TID 7 Days Qty: 21 0RF prednisone 50 mg tablet 50 mg PO DAILY Qty: 4 0RF indomethacin 50 mg capsule 50 mg PO BID PRN (Reason: pain) Qty: 20 0RF Rx Instructions: administer with food or milk clindamycin HCl 300 mg capsule 300 mg PO Q6H 7 Days Qty: 28 0RF chlorhexidine gluconate [Peridex] 0.12 % mouthwash 15 ml buccal BID Qty: 118 0RF valacyclovir 1 gram tablet 1,000 mg PO Q8H 7 Days Qty: 21 0RF oxycodone 10 mg tablet 10 mg PO Q8H PRN (Reason: severe pain (scale score 7-10)) Qty: 8 0RF Rx Instructions: Partial Fill upon patient request. Interventions: ED Discharge Assessment Last Done: 03/09/22 16:27 Discharge Date/Time: 03/09/22 16:28
[2022-03-09] MEDS: Ketorolac Tromethamine 30 MG/ML VIAL IM (16:20)
[2022-03-09] MEDS: predniSONE 20 MG TABLET 60 MG PO (16:20)
[2022-03-09] MEDS: oxyCODONE HCl Immed Release 5 MG TABLET 10 MG PO (16:21)
== END 2022-03-09 16:28 | disposition home or self-care (01) ==
PROVIDERS: Emergency Provider Emergency Medicine
DX: M10.9 Gout, unspecified (principal); M79.675 Pain in left toe(s); Z79.899 Other long term (current) drug therapy
CPT/HCPCS: 96372; 99283; 99284; J1885

== ENCOUNTER 2023-04-08 17:14 | Emergency (ER) | payer OTHER, SELFPAY ==
--- NOTE | ~2023-04-08 | XR_ITS ---
EXAMINATION: XR ANKLE AND FOOT, RIGHT CLINICAL INFORMATION: Twisted injury, pain, evaluate for fracture. COMPARISON: No similar priors. TECHNIQUE: 2 views of the right ankle and 3 views of the right foot. FINDINGS: Significant diffuse soft tissue swelling. No acute fractures or subluxation. Mild hallux valgus. Mild multifocal degenerative osteoarthritis. Mild to moderate calcaneal spurring. Small enthesophytes along the dorsal surface of the talus/navicular bone. No unexpected radiopaque foreign bodies. XR/XR foot RT 2V IMPRESSION: 1. No acute fractures or malalignment. 2. Mild hallux valgus. 3. Mild multifocal degenerative osteoarthritis. 4. Severe diffuse soft tissue swelling; correlate with physical examination.
--- NOTE | ~2023-04-08 | XR_ITS ---
EXAMINATION: XR ANKLE AND FOOT, RIGHT CLINICAL INFORMATION: Twisted injury, pain, evaluate for fracture. COMPARISON: No similar priors. TECHNIQUE: 2 views of the right ankle and 3 views of the right foot. FINDINGS: Significant diffuse soft tissue swelling. No acute fractures or subluxation. Mild hallux valgus. Mild multifocal degenerative osteoarthritis. Mild to moderate calcaneal spurring. Small enthesophytes along the dorsal surface of the talus/navicular bone. No unexpected radiopaque foreign bodies. XR/XR ankle RT 2V IMPRESSION: 1. No acute fractures or malalignment. 2. Mild hallux valgus. 3. Mild multifocal degenerative osteoarthritis. 4. Severe diffuse soft tissue swelling; correlate with physical examination.
--- NOTE | ~2023-04-08 | CT_ITS ---
EXAMINATION: CT RIGHT ANKLE WITHOUT IV CONTRAST CLINICAL INFORMATION: Lateral/anterior pain, swelling. COMPARISON: Radiograph right ankle earlier today. TECHNIQUE: Contiguous axial imaging was performed of the right ankle without intravenous administration of contrast. Coronal and sagittal reformats were obtained. This CT examination was performed using dose optimization techniques as appropriate, variously including the following: *Automated exposure control *Adjustment of mA and/or kV according to patient size (this includes techniques or standardized protocols for targeted exams where dose is matched to indication/reason for exam; i.e. extremities or head) *Use of iterative reconstruction technique DLP: 200.22 mGy-cm FINDINGS: No acute fractures or subluxation. Mild multifocal degenerative osteoarthritis. Small enthesopathic spurring adjacent to the dorsal talonavicular joint. Moderate posterior calcaneal spurring. A few nonaggressive appearing sclerotic foci are seen, favoring to represent bone islands. Diffuse soft tissue swelling and stranding. No organized collection. No unexpected radiopaque foreign bodies. CT/CT ankle RT wo IV con IMPRESSION: 1. No acute fractures or malalignment. 2. Mild multifocal degenerative osteoarthritis. 3. Diffuse soft tissue swelling and stranding. No organized collection. If the patient has persistent diminished ability to bear weight, consider obtaining an MRI of the ankle without contrast to exclude an occult injury such as ligamentous/tendinous injury.
[2023-04-08 17:56] VITALS: BP 155/85; PULSE 84; RESP 18; TEMP 36.6; O2SAT 100; BMI 61.9
--- NOTE | 2023-04-08 17:58 | ED.GENADULT ---
HPI - General Adult General Chief complaint: Extremity Injury, Lower Stated complaint: rt ankle/foot pain Time Seen by Provider: 04/08/23 19:23 Source: patient Mode of arrival: wheelchair Limitations: no limitations History of Present Illness HPI narrative: Patient is a 42 year old female who presents emergency department for evaluation of right lateral/anterior ankle pain. Onset was 3-4 days ago. She states that at baseline she has difficulty ambulating and weight-bearing, she often has twisting injuries of the ankle due to her unsteady gait. Over the past few days she noticed increasing pain that is particularly worse with weight-bearing and swelling. Denies any redness, rashes or lesions, warmth, fevers, chills. Denies any numbness or tingling to the extremity. Related Data Previous Rx's Medication Instructions Recorded meclizine 25 mg tablet 25 mg PO TID 7 days #21 tabs 07/25/21 cyclobenzaprine 10 mg tablet 10 mg PO Q8H #14 tabs 10/14/21 indomethacin 50 mg capsule 50 mg PO TID Gout flare #30 caps 10/14/21 oxycodone 5 mg tablet 5 mg PO Q6H PRN pain #14 tabs 10/14/21 prednisone 20 mg tablet 40 mg (2 x 20 mg) PO DAILY 10/14/21 Inflammation 5 days #10 tabs penicillin V potassium 500 mg 500 mg PO TID 7 days #21 tabs 01/01/22 tablet indomethacin 50 mg capsule 50 mg PO BID PRN pain #20 caps 01/02/22 prednisone 50 mg tablet 50 mg PO DAILY #4 tabs 01/02/22 chlorhexidine gluconate 0.12 % 15 ml buccal BID #118 mL 01/06/22 mouthwash (Peridex) clindamycin HCl 300 mg capsule 300 mg PO Q6H 7 days #28 caps 01/06/22 oxycodone 10 mg tablet 10 mg PO Q8H PRN severe pain 01/06/22 (scale score 7-10) #8 tabs valacyclovir 1 gram tablet 1,000 mg PO Q8H 7 days #21 tabs 01/06/22 colchicine 0.6 mg tablet 0.6 mg PO BID As needed for gout 03/09/22 #10 tabs ibuprofen 800 mg tablet 800 mg PO TID PRN pain #20 tabs 03/09/22 oxycodone 5 mg tablet 5 mg PO Q6H PRN pain #14 tabs 03/09/22 prednisone 20 mg tablet 60 mg (3 x 20 mg) PO DAILY 3 days 03/09/22 #9 tabs Allergies Allergy/AdvReac Type Severity Reaction Status Date / Time moxifloxacin [Avelox] Allergy Unknown Unknown Verified 01/01/22 20:01 No Known Allergies Allergy Unverified 11/04/19 17:57 seasonal Allergy Unknown Dry Eye Uncoded 10/14/21 15:25 Review of Systems Review of Systems: Yes all other systems are reviewed and are negative [facility] Past Medical History Attestation statement: The following information was validated with the patient. Source: old records reviewed Medical History Poor dentition Asthma exacerbation Gout Social History Social History Alcohol intake: never Smoked in Last 30 Days: No Advance Directives: No Advance Directives Information Provided: No Physical Exam ED Vital Signs: Vital Signs - 24 hr 04/08/23 17:56 04/08/23 19:42 04/08/23 22:50 Temperature 97.8 F Pulse Rate 84 78 87 Respiratory Rate 18 Blood Pressure 155/85 H 141/91 H 146/95 H Pulse Oximetry 100 98 97 Oxygen Delivery Method Room Air Room Air Room Air BMI result Body Mass Index 61.9 Appearance: Alert.?Oriented to person, place and time. No acute distress.?Normal affect. Eyes: Pupils equal, round and reactive to light.? ENT: Pharynx normal.?? Neck: Normal inspection.? Neck supple.?? CVS: Heart sounds normal. Normal heart rate and rhythm.? Pulses normal.?? Respiratory: No respiratory distress.? Lung sounds clear to auscultation bilaterally?? Abdomen: Soft and non-tender. Normoactive bowel sounds. No pulsatile mass.?? Skin: Skin warm and dry.? Normal skin color.? Normal skin turgor.?? Extremities: Localized swelling to the right ankle, tenderness upon palpation over the lateral/anterior aspect. 2+ DP/PT pulse bilaterally. No obvious deformity. Full AROM to the knee.? No calf ttp? Neuro: Moves all extremities spontaneously. Sensation intact bilaterally. CN II-XII intact. No focal neuro deficits. Ambulates with normal steady gait. Course Course Course Narrative: RME: 42 yold female presents to the ED for right ankle/foot pain after twisting ankle while walking. Xrays ordered Medications Administered Discontinued Medications Generic Name Dose Route Start Last Admin Trade Name Loli PRN Reason Stop Dose Admin Ketorolac Tromethamine 30 mg 04/08/23 20:46 04/08/23 21:26 Ketorolac Tromethamine 30 Mg/Ml Vial IM 04/08/23 20:47 30 mg ONCE ONE Administration Medical Decision Making Medical Decision Making [facility] Narrative: Patient is a 42 year old female with past medical history of gout, asthma, chronic gait instability who presents emergency department for evaluation of right ankle pain as per HPI. She is notable swelling and tenderness upon palpation during exam, extremities neurovascularly intact distally. XR imaging was obtained prior to my assumption of care which does not reveal any evidence of acute fracture dislocation but significant soft tissue swelling and mild arthritic changes. Given her degree of pain and swelling plan to obtain CT to exclude occult fracture, will trial pain management with Toradol; has not taken NSAIDs at all today, last took acetaminophen 1g at 16:00. CT does not reveal any evidence fracture, pain is much improved with Toradol, placed in air cast, provided with crutches, advised weight-bearing as tolerated, rest, ice, elevation of the extremity, acetaminophen/ibuprofen for pain management, outpatient follow-up with PCP for persistent symptoms Differential Diagnosis Differential Diagnoses: The differential diagnosis associated with the presentation includes (Fracture, dislocation, sprain. Clinically have lower suspicion for gout at this time) Independent Interpretation I performed an independent interpretation of an: Plain X-Ray (No acute fracture dislocation of the ankle/foot) Radiology Impression Discussion of test interpretation with radiology: I have reviewed the radiologist's reading. Radiologist Impression: XR/XR ankle RT 2V IMPRESSION: 1. No acute fractures or malalignment. 2. Mild hallux valgus. 3. Mild multifocal degenerative osteoarthritis. 4. Severe diffuse soft tissue swelling; correlate with physical examination. CT/CT ankle RT wo IV con IMPRESSION: 1. No acute fractures or malalignment. 2. Mild multifocal degenerative osteoarthritis. 3. Diffuse soft tissue swelling and stranding. No organized collection. If the patient has persistent diminished ability to bear weight, consider obtaining an MRI of the ankle without contrast to exclude an occult injury such as ligamentous/tendinous injury. External Record Review External record reviewed: Outpatient record Prescription Management I considered prescription management with: Pain Medication Discharge Plan Discharge Clinical Impression: Ankle sprain Qualifiers: Encounter type: initial encounter Laterality: right Patient Disposition: Home, Self-Care Instructions: Ankle Sprain (ED), Crutch Instructions (ED), R.I.C.E. Treatment (ED) Additional Instructions: You can take ibuprofen 200 mg, 3 tablets (600mg) every 6-8 hours as needed for pain, in addition to Tylenol 500 mg, 2 tablets (1,000mg) every 4-6 hours as needed for pain, but not to exceed 3 doses daily (3,000mg).? Follow-up with your primary care provider Return back to emergency department any new or worsening symptoms or concerns. Prescriptions: No Action meclizine 25 mg tablet 25 mg PO TID 7 Days Qty: 21 0RF indomethacin 50 mg capsule 50 mg PO TID Qty: 30 0RF Rx Instructions: administer with food or milk prednisone 20 mg tablet 40 mg PO DAILY 5 Days Qty: 10 0RF oxycodone 5 mg tablet 5 mg PO Q6H PRN (Reason: pain) Qty: 14 0RF Rx Instructions: Partial Fill upon patient request. cyclobenzaprine 10 mg tablet 10 mg PO Q8H Qty: 14 0RF penicillin V potassium 500 mg tablet 500 mg PO TID 7 Days Qty: 21 0RF prednisone 50 mg tablet 50 mg PO DAILY Qty: 4 0RF indomethacin 50 mg capsule 50 mg PO BID PRN (Reason: pain) Qty: 20 0RF Rx Instructions: administer with food or milk clindamycin HCl 300 mg capsule 300 mg PO Q6H 7 Days Qty: 28 0RF chlorhexidine gluconate [Peridex] 0.12 % mouthwash 15 ml buccal BID Qty: 118 0RF valacyclovir 1 gram tablet 1,000 mg PO Q8H 7 Days Qty: 21 0RF oxycodone 10 mg tablet 10 mg PO Q8H PRN (Reason: severe pain (scale score 7-10)) Qty: 8 0RF Rx Instructions: Partial Fill upon patient request. prednisone 20 mg tablet 60 mg PO DAILY 3 Days Qty: 9 0RF colchicine 0.6 mg tablet 0.6 mg PO BID Qty: 10 0RF ibuprofen 800 mg tablet 800 mg PO TID PRN (Reason: pain) Qty: 20 0RF oxycodone 5 mg tablet 5 mg PO Q6H PRN (Reason: pain) Qty: 14 0RF Rx Instructions: Partial Fill upon patient request. Referrals: Physician,Unknown J [Primary Care Provider] - Interventions: ED Discharge Assessment Last Done: 04/09/23 00:03 Discharge Date/Time: 04/09/23 00:05
[2023-04-08 19:42] VITALS: BP 141/91; PULSE 78; O2SAT 98
[2023-04-08] MEDS: Ketorolac Tromethamine 30 MG/ML VIAL IM (21:26)
[2023-04-08 22:50] VITALS: BP 146/95; PULSE 87; O2SAT 97
== END 2023-04-09 00:05 | disposition home or self-care (01) ==
PROVIDERS: Emergency Provider Emergency Medicine Emergency Medical Services
DX: S93.401A Sprain of unspecified ligament of right ankle, initial encounter (principal); R26.2 Difficulty in walking, not elsewhere classified; M25.471 Effusion, right ankle; X58.XXXA Exposure to other specified factors, initial encounter; Y93.9 Activity, unspecified; Y92.89 Other specified places as the place of occurrence of the external cause; Y99.8 Other external cause status; Z79.899 Other long term (current) drug therapy
CPT/HCPCS: 73600; 73620; 73700; 96372; 99284; J1885

== ENCOUNTER 2024-08-31 14:54 | Emergency (ER) | payer OTHER, SELFPAY ==
--- NOTE | ~2024-08-31 | CT_ITS ---
CLINICAL HISTORY: Swelling; Pain; ? Inferior Neck Abscess CT soft tissue neck with contrast Comparison: None provided Findings: The visualized intracranial contents are unremarkable. Pharyngeal mucosal space, parapharyngeal fat, prevertebral tissues, and epiglottis are within normal limits. Salivary glands are unremarkable. No focal inflammatory stranding and no loculated fluid collection to suggest an abscess. Scattered small lymph nodes bilaterally with no evidence of adenopathy. No suspicious thyroid nodules. No consolidation at the lung apices. No acute fractures. Degenerative changes cervical spine. IMPRESSION: No acute findings. This document has been electronically signed by: oRsalva Crook MD on 08/31/2024 21:10:47
--- NOTE | ~2024-08-31 | CT_ITS ---
CLINICAL HISTORY: Swelling; ? Upper Chest Abscess CT chest with contrast Comparison: None provided Findings: Posterior costophrenic angles were not imaged. The heart is normal size. No pericardial effusion. No aneurysm of thoracic aorta. No consolidation, pleural effusion or pneumothorax. The lungs are clear. No adenopathy. Thyroid and thoracic esophagus within normal limits. 1.5 cm superficial subcutaneous round low-attenuation lesion in upper back to the right of the midline with no adjacent inflammatory stranding likely a small sebaceous cyst. No acute fractures. Degenerative changes thoracic spine. IMPRESSION: 1. No acute findings. 2. 1.5 cm superficial subcutaneous round lesion in upper back to the right of the midline likely a sebaceous cyst. This document has been electronically signed by: Rosalva Crook MD on 08/31/2024 21:05:26
--- OUTSIDE RECORDS SUMMARY | 2024-08-31 14:30 | XMS_ITS | Encounter Summary ---
Author Organization [facility] Address [address] [place] [address] Care Team Providers Care Farm General Manager Name Role Phone Sveta Bunch MD Primary Care Provider [phone] Reason for Visit * Reason Comments Consult Medical weight manag ement Encounter Details Date Type Department Care Team ([facility] Contact Info) Description 08/31/2024 2:30 PM EDT Consult Bariatric Surgery - [place] [address] [facility] [address] [place] [id number] Flower Morrissey PA [address] [facility] [address] [place] [address] Morbid obesity with body mass index (BMI) of 50.0 to 59.9 in adult (CMS/HCC V24, CMS/HCC V28) (Primary Dx) Social History Tobacco Use Types Packs/Day Years Used Date Smoking Tobacco: Never Smokeless Tobacco: Never Alcohol Use Standard Drinks/Week Comments No 0 (1 standard drink = 0.6 oz pur e alcohol) Comments No Sex and Gender Information Value Date Recorded Sex Assigned at Female 07/07/2024 1:54 PM EDT Legal Sex Female 10:29 AM EST Gender Identity Female 07/07/2024 1:54 PM EDT Sexual Orientation Straight 07/07/2024 1: 54 PM EDT documented as of this encounter Last Filed Vital Signs Vital Sign Reading Time Taken Comments Blood Pressure 169/114 08/31/2024 2:17 PM EDT Pulse 98 08/31/2024 2:17 PM EDT Temperature - - Respiratory Rate - - Oxygen Saturation - - Inhaled Oxygen Concentration - - Weight 161 kg (356 lb) 08/31/2024 2:17 PM EDT Height 167.6 cm (5' 6 ) 08/31/2024 2:17 PM EDT Body Mass Index 57.46 08/31/2024 2:17 PM EDT documented in this encounter Plan of Treatment Upcoming Encounters Date Type Department Care Team (Late st Contact Info) Description 10/29/2024 1:15 PM EDT Office Visit Adult Medicine [facility] [place] [address] [place] [address] Sveta Bunch MD [address] [place] [address] 01/04/2025 2:00 PM EST Office Visit Bariatric Surgery - [place] [address] [phone] Flower Morrissey PA [address] [address] documented as of this encounter Visit Diagnoses Diagnosis Morbid obesity with body mass index (BMI) of 50.0 to 59.9 in adult (CMS/HCC V24, CMS/HCC V28)- Primary documented in this encounter Care Teams Farm General Manager Relationship Specialty Start Date End Date Sveta Bunch MD [address] [place] [id number] PCP - General Internal Medicine 01/05/24 documented as of this encounter
[2024-08-31 15:02] VITALS: BP 204/104; PULSE 91; RESP 18; TEMP 36.7; O2SAT 97; BMI 59.1
--- NOTE | 2024-08-31 15:05 | ED.GENADULT ---
HPI - General Adult General Chief complaint: General Medical Stated complaint: neck pain Time Seen by Provider: 08/31/24 18:19 Source: patient Mode of arrival: ambulatory Limitations: no limitations History of Present Illness ED Provider: Laith ROMERO HPI narrative: The patient is a 43-year-old morbidly obese female with history of hypertension, asthma, and poor dentition presenting to the ED for evaluation of swelling and tenderness of the right inferior neck/supraclavicular area over the past 2 weeks with increased pain with direct palpation and lateral rotation. The patient reports associated fatigue and congestion without associated objective fever, nausea, vomiting, cough, shortness of breath, chest pain, abdominal pain, recent sick contacts or recent trauma. The patient reports a history of frequent dental abscesses, however denies any recent dental pain or dental intervention. Related Data Previous Rx's ?Medication ?Instructions ?Recorded meclizine 25 mg tablet 25 mg PO TID 7 days #21 tabs 07/25/21 cyclobenzaprine 10 mg tablet 10 mg PO Q8H #14 tabs 10/14/21 indomethacin 50 mg capsule 50 mg PO TID Gout flare #30 caps 10/14/21 oxycodone 5 mg tablet 5 mg PO Q6H PRN pain #14 tabs 10/14/21 prednisone 20 mg tablet 40 mg (2 x 20 mg) PO DAILY 10/14/21 Inflammation 5 days #10 tabs penicillin V potassium 500 mg 500 mg PO TID 7 days #21 tabs 01/01/22 tablet indomethacin 50 mg capsule 50 mg PO BID PRN pain #20 caps 01/02/22 prednisone 50 mg tablet 50 mg PO DAILY #4 tabs 01/02/22 chlorhexidine gluconate 0.12 % 15 ml buccal BID #118 mL 01/06/22 mouthwash (Peridex) clindamycin HCl 300 mg capsule 300 mg PO Q6H 7 days #28 caps 01/06/22 oxycodone 10 mg tablet 10 mg PO Q8H PRN severe pain 01/06/22 (scale score 7-10) #8 tabs valacyclovir 1 gram tablet 1,000 mg PO Q8H 7 days #21 tabs 01/06/22 colchicine 0.6 mg tablet 0.6 mg PO BID As needed for gout 03/09/22 #10 tabs ibuprofen 800 mg tablet 800 mg PO TID PRN pain #20 tabs 03/09/22 oxycodone 5 mg tablet 5 mg PO Q6H PRN pain #14 tabs 03/09/22 prednisone 20 mg tablet 60 mg (3 x 20 mg) PO DAILY 3 days 03/09/22 #9 tabs Allergies Allergy/AdvReac Type Severity Reaction Status Date / Time moxifloxacin (Avelox) Allergy Unknown Unknown Verified 08/31/24 15:05 seasonal Allergy Unknown Dry Eye Uncoded 08/31/24 15:05 Review of Systems Review of Systems: Yes all other systems are reviewed and are negative PMFSH Past Medical History Medical History Poor dentition Asthma exacerbation Gout Social History Social History Alcohol intake: never Smoked in Last 30 Days: No Use of substances other than those prescribed or required for medical reasons: No Advance Directives: No Advance Directives Information Provided: No Do you have a plan to hurt others: No Plan Patient : No Physical Exam ED Vital Signs: Vital Signs - 24 hr 08/31/24 15:02 08/31/24 15:33 08/31/24 18:08 Temperature 98.1 F Pulse Rate 91 86 84 Respiratory Rate 18 16 18 Blood Pressure 204/104 H 182/109 H 139/78 Pulse Oximetry 97 93 98 Oxygen Delivery Method Room Air Room Air Room Air BMI result Body Mass Index 59.1 CONSTITUTIONAL: The patient is morbidly obese, otherwise appears non-toxic, well nourished and in no acute distress. Vital signs as documented. HEAD: Atraumatic, normocephalic. EYES: EOMs grossly intact, pupils equal, conjunctiva clear, no exudate. ENT: Nares patent, no discharge. Airway patent, no audible stridor, visible mucosa is pink and moist without noted lesions. Posterior pharynx shows nonedematous midline uvula, no peritonsillar or tonsillar swelling, no tonsillar exudate. NECK: Trachea is midline, no midline spinous process tenderness, no crepitance or step-off, there is an approximate 4 cm x 6 cm ovoid tender area of swelling without significant overlying erythema noted to the right inferior anterolateral neck advancing into the right supraclavicular region without clavicular tenderness or crepitus, no skin surface changes consistent with obvious superficial abscess, no other obvious masses or gross abnormalities. CHEST: Symmetric movement, normal appearance. LUNGS: LS present and CTAB, no w/r/r. Non-labored work of breathing. CARDIAC: Regular Rhythm, S1/S2 appreciated, no murmurs, rubs or gallops. ABDOMEN: Abdomen soft and non-tender x4 quadrants, no palpable masses or organomegaly. : Deferred. EXTREMITIES: Normal tone, moves all extremities spontaneously without reported pain. No obvious acute injury or deformity noted. NEURO: Alert and oriented x3, CN II-XII appear grossly intact. Cerebellar Functioning grossly intact. No obvious sensory or motor deficits. Speech clear and appropriate. PSYCH: normal affect, appropriate eye contact, fluid speech, with appropriate response to questioning. No reported suicidality or homicidality. SKIN: Warm, dry, color appropriate, normal turgor. No rashes noted. Course Course Course Narrative: 08/31/24 1505 NICK Tovar This is a Rapid Medical Examination (RME) performed by Nikhil Billy PA-C in triage. Full HPI, ROS, assessment and treatment plan per primary provider in the Main ED. Hx: 43 yo F hx HTN here for eval of right sided neck/throat pain with painful lumps to neck x2 weeks. feels generally unwell. denies dental pain. hx of dental abscesses. PE/vitals: hypertensive - took meds this morning. extensive dental caries/ poor dentition, palpable cervical LAD, ttp. no obvious anterior neck swelling. Plan: labs, viral/strep swabs, will defer imaging to primary provider Medications Administered Discontinued Medications Generic Name Dose Route Start Last Admin Trade Name Freq PRN Reason Stop Dose Admin Sodium Chloride 1,000 mls @ 999 mls/hr 08/31/24 19:00 08/31/24 19:14 Ns IV 08/31/24 20:00 999 mls/hr .Q1H1M DORETHA Administration Iohexol 80 ml 08/31/24 20:09 08/31/24 20:14 Iohexol 350 Mg/Ml 100 Ml Infus..Btl IV 08/31/24 20:10 80 ml ONCE ONE Administration Medical Decision Making Medical Decision Making MDM Narrative: The patient is a 43-year-old female presenting to the ED for evaluation of 2 weeks of worsening swelling, tenderness, and pain in the right inferior anterolateral neck which increases with direct palpation or neck movement. Exam is positive for significant swelling of the right supraclavicular area radiating to the right inferior neck without overlying skin changes consistent with cellulitis or superficial abscess. Patient's laboratory evaluation is largely reassuring, no leukocytosis, anemia, electrolyte abnormality, or HARLEY, C-reactive protein is elevated at 1.97. Viral swab is negative. The patient was initially hypertensive upon arrival to the ED, however blood pressure has improved. Patient will be sent for CT soft tissue neck and chest with contrast to evaluate for deep space abscess versus other acute process. 9:31 PM 08/31/2024 (Nikhil ROMERO): The patient is CTs have resulted and showed no evidence of any acute pathology. The exact cause of the patient's swelling and pain in the right anterolateral neck is not entirely clear, however there does not appear to be any emergent or otherwise acutely dangerous cause for her symptoms. Patient will be discharged with lidocaine patch, anti-inflammatories, and outpatient follow up. Admission/Observation Consideration of admission/observation: Escalation of care including admission/observation considered Lab Data MDM Lab Attestation statement: I reviewed the patient's lab results. 08/31/24 16:15 08/31/24 16:15 Labs: Lab Results 08/31/24 08/31/24 Range/Units 16:08 16:15 WBC 9.8 (4.8-10.8) X10*3/uL RBC 4.83 (4.20-5.50) X10*6/uL Hgb 13.7 (12.0-16.0) g/dl Hct 40.7 (37.0-47.0) % MCV 84.3 (80.0-98.0) fL MCH 28.4 (27.0-33.0) pg MCHC 33.7 (31.0-35.0) g/dl RDW 13.5 (11.0-16.0) % Plt Count 269 (160-400) X10*3/uL MPV 10.6 (9.4-12.3) fL Immature Gran % (Auto) 0.8 H (0.0-0.4) % Neut % (Auto) 52.5 (45-73) % Lymph % (Auto) 36.9 (20-40) % [place] % (Auto) 5.8 (2-11) % Eos % (Auto) 3.2 (0-4) % Baso % (Auto) 0.8 (0-2) % Lymph # (Auto) 3.6 (1.2-4.9) X10*3/uL [place] # (Auto) 0.6 (0.1-1.2) X10*3/uL Eos # (Auto) 0.3 (0.0-0.4) X10*3/uL Baso # (Auto) 0.1 (0.0-0.2) X10*3/uL Abs Immat Gran (auto) 0.08 H (0.00-0.03) X10*3/uL Absolute Neuts (auto) 5.2 (2.0-8.3) x10*3/uL Absolute Nucleated RBC 0.000 (0.0-0.012) X10*3/uL Nucleated RBC % (auto) 0.0 (0.0-0.2) /100WBC Sodium 140 (135-145) mmol/L Potassium 4.3 (3.3-5.1) mmol/L Chloride 106 (96-108) mmol/L Carbon Dioxide 24 (22-29) mmol/L Anion Gap 14 (12-20) BUN 16 (9-16) mg/dL Creatinine 0.71 (0.5-1.4) mg/dL Estim Creat Clear Calc 155.7 Estimated GFR > 60 Random Glucose 221 H (60-115) mg/dL Calcium 9.5 (8.4-10.2) mg/dL Total Bilirubin 0.4 (0.0-1.0) mg/dL AST 28 (5-31) U/L ALT 23 (0-31) U/L Alkaline Phosphatase 73 (39-117) U/L C-Reactive Protein 1.97 H (< or = 0.50) mg/dL Total Protein 8.0 (6.5-8.0) g/dL Albumin 4.6 (3.5-5.0) g/dL Beta HCG, Quant < 2 mIU/mL Influenza Type A (PCR) NEGATIVE (Negative) Influenza Type B (PCR) NEGATIVE (Negative) RSV RNA Qual (PCR) NEGATIVE (Negative) SARS-CoV-2 RNA (RT-PCR) NEGATIVE (Negative) S. pyogenes GrpA ROBINA Negative (Negative) Chronic Conditions Patient?s care impacted by: Diabetes and Hypertension Discharge Plan Discharge Clinical Impression: Neck pain on right side Patient Disposition: Home, Self-Care Instructions: Neck Pain (ED), Acute Neck Pain (ED) Additional Instructions: Thank you for choosing [facility] Emergency Department for your care today. Thankfully your CT today shows no evidence of an acute emergent process in your neck or chest. Your laboratory evaluation is reassuring. At this time there is no evidence of an acute process requiring admission to the hospital or continued ED observation, and it is safe to discharge you home. The exact cause of your right neck pain is not entirely clear, however at this time there does not appear to be any infectious, or other acute emergent process causing your symptoms. Your symptoms may be related to strain of a neck muscle or sleeping in an odd position. You may take alternating (staggered) doses of ibuprofen 600mg and Tylenol 1000mg every 4 hours as needed for any additional pain. Please continue taking all your regularly prescribed medications as directed. Please rest the injured area, and apply ice for 20 minutes every hour. Please stay well hydrated and get plenty of rest. We have treated you with a lidocaine patch, if you find this provides you significant relief additional patches can be purchased at any local pharmacy without a prescription. Please follow up with your primary care physician for re-evaluation, additional management of your symptoms, and continued preventative care. If you do not have a primary care physician, please call the [facility] at [phone] to establish a new primary care physician. While waiting to establish your new primary care physician, you can call our [facility] at [phone] for non-emergency needs. Please return to the emergency department if you develop a severe or sudden change in your symptoms, a fever over 100.4 that does not improve with Tylenol or Ibuprofen, recurrent vomiting, or any other new or worsening symptoms or concerns. Prescriptions: No Action meclizine 25 mg tablet 25 mg PO TID 7 Days Qty: 21 0RF indomethacin 50 mg capsule 50 mg PO TID Qty: 30 0RF Rx Instructions: administer with food or milk prednisone 20 mg tablet 40 mg PO DAILY 5 Days Qty: 10 0RF oxycodone 5 mg tablet 5 mg PO Q6H PRN (Reason: pain) Qty: 14 0RF Rx Instructions: Partial Fill upon patient request. cyclobenzaprine 10 mg tablet 10 mg PO Q8H Qty: 14 0RF penicillin V potassium 500 mg tablet 500 mg PO TID 7 Days Qty: 21 0RF prednisone 50 mg tablet 50 mg PO DAILY Qty: 4 0RF indomethacin 50 mg capsule 50 mg PO BID PRN (Reason: pain) Qty: 20 0RF Rx Instructions: administer with food or milk clindamycin HCl 300 mg capsule 300 mg PO Q6H 7 Days Qty: 28 0RF chlorhexidine gluconate [Peridex] 0.12 % mouthwash 15 ml buccal BID Qty: 118 0RF valacyclovir 1 gram tablet 1,000 mg PO Q8H 7 Days Qty: 21 0RF oxycodone 10 mg tablet 10 mg PO Q8H PRN (Reason: severe pain (scale score 7-10)) Qty: 8 0RF Rx Instructions: Partial Fill upon patient request. prednisone 20 mg tablet 60 mg PO DAILY 3 Days Qty: 9 0RF colchicine 0.6 mg tablet 0.6 mg PO BID Qty: 10 0RF ibuprofen 800 mg tablet 800 mg PO TID PRN (Reason: pain) Qty: 20 0RF oxycodone 5 mg tablet 5 mg PO Q6H PRN (Reason: pain) Qty: 14 0RF Rx Instructions: Partial Fill upon patient request. Referrals: Sveta Bunch MD [Primary Care Provider, Internal Medicine] Print Language: Kinyarwanda
[2024-08-31 15:33] VITALS: BP 182/109; PULSE 86; RESP 16; O2SAT 93
[2024-08-31 16:20] LABS: MANUAL DIFF FLAG NO
[2024-08-31 16:29] LABS: Hematocrit 40.7 % (37.0-47.0); Hemoglobin 13.7 g/dl (12.0-16.0); Imm Gran Abs Auto 0.08 X10*3/uL (0.00-0.03); Imm Gran Pct Auto 0.8 % (0.0-0.4); Lymphocytes Absolute Auto 3.6 X10*3/uL (1.2-4.9); Mean Corpuscular HGB Conc 33.7 g/dl (31.0-35.0); Mean Corpuscular Hemoglobin 28.4 pg (27.0-33.0); Mean Corpuscular Volume 84.3 fL (80.0-98.0); NRBC Abs Auto 0.000 X10*3/uL (0.0-0.012); NRBC Pct Auto 0.0 /100WBC (0.0-0.2); Platelet Count 269 X10*3/uL (160-400); Red Blood Count 4.83 X10*6/uL (4.20-5.50); White Blood Count 9.8 X10*3/uL (4.8-10.8)
[2024-08-31 16:37] LABS: Alanine Aminotransferase 23 U/L (0-31); Albumin Level 4.6 g/dL (3.5-5.0); Alkaline Phosphatase 73 U/L (39-117); Anion Gap 14 (12-20); Aspartate Amino Transferase 28 U/L (5-31); Blood Urea Nitrogen 16 mg/dL (9-16); Calcium 9.5 mg/dL (8.4-10.2); Carbon Dioxide 24 mmol/L (22-29); Chloride 106 mmol/L (96-108); Creatinine Clr Calc Pharmacy 155.7; Estimated Glomerular Filt Rate > 60; Potassium 4.3 mmol/L (3.3-5.1); Sodium 140 mmol/L (135-145); Total Protein 8.0 g/dL (6.5-8.0)
[2024-08-31 16:41] LABS: IDNOW Serial# 55D5AD1C; Strep A Nucleic Acid Negative (Negative)
[2024-08-31 17:01] LABS: Resp Syncy Virus RNA Qual PCR NEGATIVE (Negative); SARS COV2 PCR INHOUSE NEGATIVE (Negative)
--- NOTE | 2024-08-31 17:19 | PC.NURSE ---
PAtient presents to ED c/o rightneck pain and swelling. Pain rated 7/10 but increases when she goes to sleep. Patient reports having poor dental health but denies dental pain. Patient states I have severe anxiety Lights dimmed and curtains pulled for comfort. Provider in to see patient. Plan of care on going
[2024-08-31 18:08] VITALS: BP 139/78; PULSE 84; RESP 18; O2SAT 98
--- NOTE | 2024-08-31 19:16 | PC.NURSE ---
report from Sixto MERINO Patient awake and alert. skin flush, warm, dry. resp even, speaking in full clear sentences. c/o right neck pain/swelling x 2 weeks. IV established and IV fluids administered per APR. pt aware of plan of care for CT
[2024-08-31] MEDS: iohexoL 350 MG/ML 100 ML INFUS..BTL 80 ML IV (20:14)
[2024-08-31] MEDS: Lidocaine 4 % Patch ADH..PATCH 1 PATCH TRANSDERMA (22:13)
[2024-08-31 22:23] VITALS: BP 160/93; PULSE 84; RESP 18; TEMP 36; O2SAT 96
== END 2024-08-31 22:25 | disposition home or self-care (01) ==
PROVIDERS: Physician Assistant Medical; Emergency Provider Emergency Medicine; PCP Internal Medicine
DX: R22.1 Localized swelling, mass and lump, neck (principal); R53.83 Other fatigue; R09.89 Other specified symptoms and signs involving the circulatory and respiratory systems; E11.9 Type 2 diabetes mellitus without complications; I10 Essential (primary) hypertension; Z79.899 Other long term (current) drug therapy
CPT/HCPCS: 36415; 70491; 71260; 80053; 84702; 85025; 86140; 87637; 87651; 96360; 96361; 99284; 99285; Q9967

== ENCOUNTER → 2024-08-31 18:57 | Outpatient (BNV) | payer OTHER, SELFPAY | PROVIDERS: Emergency Provider Emergency Medicine; PCP Internal Medicine; Visit Provider Specialist | DX: M54.2 Cervicalgia (principal); R22.31 Localized swelling, mass and lump, right upper limb | CPT/HCPCS: 70491; 71260 ==